=== PATIENT | female | born 1990 | race Caucasian/White ===

== ENCOUNTER 2018-05-15 17:03 | Inpatient (IN) | payer OTHER ==
[2018-05-15] MEDS ORDERED: AMPICILLIN 2 GM/NS (PMX) 100 ML (20:41)
[2018-05-15] MEDS ORDERED: MISOPROSTOL 200 MCG TAB PR (21:00)
[2018-05-15] MEDS ORDERED: CARBOPROST 250 MCG INJ IM (21:00)
[2018-05-15] MEDS ORDERED: LIDOCAINE 1% (MPF) 30 ML INJ INJ (21:00)
[2018-05-15] MEDS ORDERED: OXYTOCIN 30 UNITS/LR 500 ML IV ×2 (21:00)
[2018-05-15] MEDS ORDERED: BUTORPHANOL 2 MG INJ IV (21:00)
[2018-05-15] MEDS: LACTATED RINGER'S 1,000 ML IV ×2 (21:11→23:06)
[2018-05-15] MEDS: AMPICILLIN 2 GM/NS (PMX) 100 ML IV (21:12)
[2018-05-15 21:15] LABS: ADD MAN DIFF? NO
[2018-05-15 21:19] LABS: BASOPHILS % 0.4 % (0.0-2.0); EOSINOPHILS % 0.3 % (0.0-7.0); HEMOGLOBIN 12.9 g/dl (12.0-16.0); LYMPHOCYTES # 2.3 10^3/ul (0.8-2.9); LYMPHOCYTES % 25.9 % (15.0-51.0); MEAN CORPUSCULAR HEMOGLOBIN 29.7 pg (29.0-33.0); MEAN CORPUSCULAR HGB CONC 33.1 g/dl (32.0-37.0); MEAN CORPUSCULAR VOLUME 89.9 fl (82.0-101.0); MEAN PLATELET VOLUME 9.1 fl (7.4-10.4); MONOCYTE # 0.9 10^3/ul (0.3-0.9); NEUTROPHIL # 5.5 10^3/ul (1.6-7.5); NEUTROPHILS % 62.4 % (39.0-77.0); PLATELET COUNT 177 10^3/UL (140-415); RED BLOOD COUNT 4.34 10^6/ul (4.20-5.40); RED CELL DISTRIBUTION WIDTH 15.2 % (11.5-14.5)
[2018-05-15 21:19] LABS: WHITE BLOOD COUNT 8.9 10^3/ul (4.8-10.8)
[2018-05-15 21:39] LABS: INR 0.98; PROTIME 13.1 Sec (11.9-14.9)
[2018-05-15 22:12] LABS: HEPATITIS B SURFACE ANTIGEN NEGATIVE (NEGATIVE)
[2018-05-15] MEDS ORDERED: FENTAnyl 2MCG/ML-ROPIV 0.2% 100 ML (22:52)
[2018-05-15] MEDS ORDERED: NALOXONE (0.4 MG/ML) INJ IV (23:00)
[2018-05-15] MEDS ORDERED: ONDANSETRON 4 MG INJ (23:13)
[2018-05-15] MEDS: ONDANSETRON 4 MG INJ IV (23:19)
[2018-05-15] MEDS: OXYTOCIN 30 UNITS/LR 500 ML IV (23:38)
[2018-05-16] MEDS: AMPICILLIN 1 GM/NS (PMX) 50 ML IV ×3 (01:32→08:46)
[2018-05-16] MEDS: FENTAnyl 2MCG/ML-ROPIV 0.2% 100 ML BAG EPI (05:52)
[2018-05-16] MEDS: LACTATED RINGER'S 1,000 ML IV (07:36)
[2018-05-16] MEDS: ONDANSETRON 4 MG INJ IV ×2 (08:46→11:49)
[2018-05-16] MEDS: METHYLERGONOVINE 0.2 MG INJ IM (11:18)
[2018-05-16] MEDS: OXYTOCIN 30 UNITS/LR 500 ML IV ×2 (11:21→14:39)
[2018-05-16] MEDS: IBUPROFEN 600 MG TAB PO ×3 (12:00→23:46)
[2018-05-16 15:24] LABS: RAPID PLASMA REAGIN NONREACTIVE (NR)
[2018-05-16] MEDS ORDERED: METHYLERGONOVINE 0.2 MG INJ IM (15:30)
[2018-05-16] MEDS ORDERED: DIBUCAINE 1% 30 GM OINT TOP (15:30)
[2018-05-16] MEDS ORDERED: CARBOPROST 250 MCG INJ IM (15:30)
[2018-05-16] MEDS ORDERED: ACETAMINOPHEN 325 MG TAB PO (15:30)
[2018-05-16] MEDS ORDERED: ZOLPIDEM 5 MG TAB PO (15:30)
[2018-05-16] MEDS ORDERED: OXYTOCIN 30 UNITS/LR 500 ML IV (15:30)
[2018-05-16] MEDS ORDERED: MISOPROSTOL 200 MCG TAB PR (15:30)
[2018-05-16] MEDS ORDERED: SENNA/DOCUSATE NA (8.6MG/50MG) TAB PO (15:30)
[2018-05-16] MEDS ORDERED: ONDANSETRON 4 MG INJ IV (15:30)
[2018-05-16] MEDS ORDERED: DIPHENHYDRAMINE 50 MG INJ IV (15:30)
[2018-05-16] MEDS: OXYCODONE/ASPIRIN (4.88/325) TAB PO (16:34)
[2018-05-16] MEDS: LACTATED RINGER'S 1,000 ML IV* (19:40)
[2018-05-16] MEDS: WITCH HAZEL/GLYCERIN PAD PR (23:47)
[2018-05-16] MEDS: LANOLIN HPA 1 PKT TOP (23:47)
[2018-05-16] MEDS: BENZOCAINE 20% 56 ML SPRAY TOP (23:48)
[2018-05-17] MEDS: DEXTROSE 5%-LR 1,000 ML IV ×4 (00:49→15:08)
[2018-05-17] MEDS: LACTATED RINGER'S 1,000 ML IV* ×3 (00:50→15:08)
[2018-05-17] MEDS: IBUPROFEN 600 MG TAB PO ×3 (05:40→17:40)
[2018-05-17 08:31] LABS: ADD MAN DIFF? NO
[2018-05-17 08:34] LABS: BASOPHIL # 0.1 10^3/ul (0.0-0.1); BASOPHILS % 0.4 % (0.0-2.0); EOSINOPHILS # 0.1 10^3/ul (0.0-0.5); EOSINOPHILS % 0.5 % (0.0-7.0); HEMATOCRIT 34.9 % (37.0-47.0); HEMOGLOBIN 11.5 g/dl (12.0-16.0); LYMPHOCYTES # 2.5 10^3/ul (0.8-2.9); LYMPHOCYTES % 21.1 % (15.0-51.0); MEAN CORPUSCULAR HEMOGLOBIN 29.8 pg (29.0-33.0); MEAN CORPUSCULAR VOLUME 90.4 fl (82.0-101.0); MEAN PLATELET VOLUME 9.1 fl (7.4-10.4); MONOCYTE # 1.2 10^3/ul (0.3-0.9); MONOCYTES % 9.9 % (0.0-11.0); NEUTROPHIL # 7.9 10^3/ul (1.6-7.5); NEUTROPHILS % 67.4 % (39.0-77.0); PLATELET COUNT 133 10^3/UL (140-415); RED BLOOD COUNT 3.86 10^6/ul (4.20-5.40); RED CELL DISTRIBUTION WIDTH 15.4 % (11.5-14.5)
[2018-05-17 08:34] LABS: WHITE BLOOD COUNT 11.7 10^3/ul (4.8-10.8)
[2018-05-18] MEDS: IBUPROFEN 600 MG TAB PO ×3 (00:11→12:11)
[2018-05-18] MEDS: MEASLES,MUMPS,RUBELLA VACCINE INJ SC* (09:00)
[2018-05-18] MEDS: DIPHTH/TET/ACEL PERTUSS (ADULT) 0.5 ML VIAL IM* (09:00)
== END 2018-05-18 14:39 | disposition home or self-care (01) | DRG 807 ==
LOC: OBT 17:03 → PP1 05-16 18:14 → L-D 17:06 → OBT 19:53 → L-D 19:53
PROVIDERS: Obstetrics & Gynecology
PROC: 10E0XZZ Delivery of Products of Conception, External Approach (ICD-10-PCS; principal; 2018-05-16)
PROC: 0HQ9XZZ Repair Perineum Skin, External Approach (ICD-10-PCS; 2018-05-16)
DX: O99.824 Streptococcus B carrier state complicating childbirth (principal); Z37.0 Single live birth; O70.0 First degree perineal laceration during delivery; Z3A.40 40 weeks gestation of pregnancy
CPT/HCPCS: 62319; 76815; 76818; 85025; 85610; 85730; 86592; 86850; 86900; 86901; 87340